=== PATIENT | female | born 1985 | race Caucasian/White ===

== ENCOUNTER 2016-09-20 20:25 | Emergency (ER) | payer SELFPAY ==
[~2016-09-20] VITALS: Ht 167.6 cm; Wt 64.0 kg
[2016-09-20 20:27] VITALS: Ht 167.6 cm; Wt 64.0 kg
[2016-09-20] MEDS ORDERED: ONDANSETRON 4 MG INJ IV STA (21:29)
[2016-09-20] MEDS ORDERED: SOD CHLORIDE 0.9% 1,000 ML IV STA (21:29)
[2016-09-20] MEDS ORDERED: morphine 2 MG INJ IV STA (21:29)
--- NOTE | 2016-09-20 21:33 | ERA ---
ER Documentation Chief Complaint Date/Time DATE: 09/20/16 TIME: 21:29 Chief Complaint RLQ abd pain x 1 day HPI This is a 31-year-old female presented with a chief complaint of right lower quadrant abdominal pain. Patient's pain is described as 8 out of 10 and tight/ throbbing without radiation. Patient's pain started when she was at rest. Has not taken any medications to relieve the symptoms and describes no aggravating/ alleviating factors. Patient has not had pain like this before. No surgeries or past medical history given. Patient is allergic to hydrocortisone. Patient denies fever, anorexia, weight loss, migrating pain, constipation, postprandial abdominal pain, new or recently changed medications, genital pain or ingestion of new or undercooked food. ROS All systems reviewed and are negative except as per history of present illness. Allergies Allergies: Coded Allergies: No Known Allergy (Unverified , 09/20/16) PMhx/Soc Medical and Surgical Hx: pt denies Medical Hx, pt denies Surgical Hx Hx Alcohol Use: Yes (social) Hx Substance Use: No Hx Tobacco Use: Yes Smoking Status: Light tobacco smoker Physical Exam Vitals Vital Signs Date Time Temp Pulse Resp B/P Pulse Ox O2 Delivery O2 Flow Rate FiO2 09/20/16 20:27 98.0 66 20 125/81 100 Physical Exam Const: 31-year-old female who is well-developed and in mild distress who is curled up on initial presentation Head: Atraumatic Eyes: Normal Conjunctiva ENT: Normal External Ears, Nose and Mouth. Neck: Full range of motion..~ No meningismus. Resp: Clear to auscultation bilaterally Cardio: Regular rate and rhythm, no murmurs Abd: Soft nondistended with normal bowel sounds. Mild right lower quadrant tenderness with no guarding. Negative Rovsing's, obturator's and psoas signs. No suprapubic tenderness. Skin: No petechiae or rashes Back: No midline or flank tenderness. No CVA tenderness. Ext: No cyanosis, or edema Neur: Awake and alert Psych: Normal Mood and Affect Result Diagram: 09/20/16213909/20/162139 Results 24 hrs Laboratory Tests Test 09/20/16 21:12 09/20/16 21:40 Urine Color YELLOW Urine Clarity CLOUDY Urine pH 7.0 Urine Specific [place] 1.029 Urine Ketones NEGATIVEmg/dL Urine Nitrite NEGATIVEmg/dL Urine Bilirubin NEGATIVEmg/dL Urine Urobilinogen NEGATIVEmg/dL Urine Leukocyte Esterase NEGATIVELeu/ul Urine Microscopic RBC 1/HPF Urine Microscopic WBC 0/HPF Urine Squamous Epithelial Cells FEW/HPF Urine Amorphous Crystals FEW/HPF Urine Hemoglobin NEGATIVEmg/dL Urine Glucose NEGATIVEmg/dL Urine Total Protein NEGATIVEmg/dl White Blood Count 8.510^3/ul Red Blood Count 4.1910^6/ul Hemoglobin 13.0g/dl Hematocrit 38.8% Mean Corpuscular Volume 92.6fl Mean Corpuscular Hemoglobin 31.0pg Mean Corpuscular Hemoglobin Concent 33.5g/dl Red Cell Distribution Width 12.2% Platelet Count 37133^3/UL Mean Platelet Volume 10.1fl Neutrophils % 73.2% Lymphocytes % 18.6% Monocytes % 6.7% Eosinophils % 0.7% Basophils % 0.4% Nucleated Red Blood Cells % 0.0/100WBC Neutrophils # 6.210^3/ul Lymphocytes # 1.610^3/ul Monocytes # 0.610^3/ul Eosinophils # 0.110^3/ul Basophils # 0.010^3/ul Nucleated Red Blood Cells # 0.010^3/ul Sodium Level 138mmol/L Potassium Level 3.7mmol/L Chloride Level 105mmol/L Carbon Dioxide Level 24mmol/L Anion Gap 13 Blood Urea Nitrogen 26mg/dl Creatinine 0.74mg/dl Glucose Level 98mg/dl Calcium Level 9.1mg/dl Total Bilirubin 0.1mg/dl Direct Bilirubin 0.00mg/dl Indirect Bilirubin 0.1mg/dl Aspartate Amino Transf (AST/SGOT) 28IU/L Alanine Aminotransferase (ALT/SGPT) 31IU/L Alkaline Phosphatase 43IU/L Total Protein 7.2g/dl Albumin 4.5g/dl Globulin 2.70g/dl Albumin/Globulin Ratio 1.66 Lipase 58U/L Current Medications Medications (Trade) Dose Ordered Sig/Adonis Route PRN Reason Start Time Stop Time Status Last Admin Dose Admin Sodium Chloride (NS) 1,000 ml @ 1,000 mls/hr Q1H STAT IV 09/20/16 21:29 09/20/16 22:28 DC 09/20/16 21:44 Morphine Sulfate (morphine) 2 mg ONCE STAT IV 09/20/16 21:29 09/20/16 21:30 DC 09/20/16 21:43 Ondansetron HCl (Zofran Inj) 4 mg ONCE STAT IV 09/20/16 21:29 09/20/16 21:30 DC 09/20/16 21:43 Procedures/MDM This is a 31-year-old female presenting with what lower quadrant tenderness as described in the history and physical examination. Patient was given 2 mg of morphine IV and 4 mg of Zofran IV. The workup included CBC, CMP, lipase, urinalysis, urine . Urine was negative. Urinalysis showed few amorphous crystals. The CBC and CMP were unremarkable without leukocytosis. The current most likely diagnosis is primary dysmenorrhea versus possible nephrolithiasis. I have very little suspicion for complete obstruction or hydronephrosis. At this time the patient will be discharged with Flomax for possible stone and instructed on palliative care. At this time I do not suspect ovarian torsion, tubo-ovarian abscess, mechanical obstruction, ectopic , hernia, appendicitis, intestinal ischemia, PID, AAA, diverticulitis or cystitis. On repeat exam, the abdomen has improved. The patient is well appearing, and tolerates PO. I have spoke with the patient regarding their condition and future management. They have verbally responded that they understand their status and treatment plan. The patients vitals are stable, and their current condition is appropriate for discharge. Patient has been told to return to the emergency department in 8 hours for reevaluation. I spoke with my attending Dr. Espino who has agreed with the assessment and plan. Patient has verbally responded that she understands. The patient will be given discharge instructions with return precautions. Departure Diagnosis: Primary Impression: Nephrolithiasis Additional Impression: Abdominal cramps Condition: Stable Additional Instructions: Follow-up in 8 hours for reevaluation. Return the the emergency department immediately if symptoms worsen or change. If you have any questions regarding medications, ask your pharmacist or us before you leave. If any adverse reactions occur while taking your medications, discontinue the treatment and return to the emergency department immediately. Take your medications as directed, and complete the entire course of treatment. NANI MOSQUERA PA-C Sep 20, 2016 21:33
[2016-09-20 21:56] LABS: ADD SCAN DIFF NO
[2016-09-20 21:58] LABS: BASOPHILS % 0.4 % (0.0-2.0); EOSINOPHILS # 0.1 10^3/ul (0.0-0.5); EOSINOPHILS % 0.7 % (0.0-7.0); HEMATOCRIT 38.8 % (37.0-47.0); LYMPHOCYTES # 1.6 10^3/ul (0.8-2.9); LYMPHOCYTES % 18.6 % (15.0-51.0); MEAN CORPUSCULAR HGB CONC 33.5 g/dl (32.0-37.0); MEAN CORPUSCULAR VOLUME 92.6 fl (82.0-101.0); MEAN PLATELET VOLUME 10.1 fl (7.4-10.4); MONOCYTE # 0.6 10^3/ul (0.3-0.9); MONOCYTES % 6.7 % (0.0-11.0); NEUTROPHIL # 6.2 10^3/ul (1.6-7.5); NEUTROPHILS % 73.2 % (39.0-77.0); PLATELET COUNT 201 10^3/UL (140-415); RED BLOOD COUNT 4.19 10^6/ul (4.20-5.40); RED CELL DISTRIBUTION WIDTH 12.2 % (11.5-14.5); WHITE BLOOD COUNT 8.5 10^3/ul (4.8-10.8)
[2016-09-20 22:18] LABS: ADD UMIC YES; UR AMORPHOUS CRYSTAL FEW /HPF (NONE SEEN); UR ASCORBIC ACID NEGATIVE (NEGATIVE); UR BILIRUBIN (Dip) NEGATIVE (NEGATIVE); UR BLOOD (Dip) NEGATIVE (NEGATIVE); UR CLARITY CLOUDY (CLEAR); UR COLOR YELLOW (YELLOW); UR GLUCOSE (Dip) NEGATIVE (NEGATIVE); UR KETONES (Dip) NEGATIVE (NEGATIVE); UR LEUKOCYTE ESTERASE (Dip) NEGATIVE Leu/ul (NEGATIVE); UR NITRITE (Dip) NEGATIVE (NEGATIVE); UR RBC 1 /HPF (0-5); UR SPECIFIC GRAVITY (Dip) 1.029 (1.003-1.030); UR SQUAMOUS EPITHELIAL CELL FEW /HPF (FEW); UR TOTAL PROTEIN (Dip) NEGATIVE (NEGATIVE); UR UROBILINOGEN (Dip) NEGATIVE (NEGATIVE)
[2016-09-20 22:18] LABS: ALBUMIN 4.5 g/dl (3.3-4.9); ALBUMIN/GLOBULIN RATIO 1.66; BILIRUBIN,INDIRECT 0.1 mg/dl (0-1.1); BILIRUBIN,TOTAL 0.1 mg/dl (0.2-1.3); CALCIUM 9.1 mg/dl (8.4-10.2); CREATININE 0.74 mg/dl (0.44-1.00); POTASSIUM 3.7 mmol/L (3.5-5.1); TOTAL PROTEIN 7.2 g/dl (6.1-8.1)
[2016-09-20] MEDS ORDERED: TAMS-14 PO (22:55)
[2016-09-20] MEDS ORDERED: IBUP-1542 PO (22:55)
[2016-09-20 23:06] VITALS: BP 130/72; PULSE 55; RESP 16
== END 2016-09-20 23:09 | disposition home or self-care (01) ==
LOC: FTE 20:25
DX: N20.0 Calculus of kidney (principal); F17.210 Nicotine dependence, cigarettes, uncomplicated
CPT/HCPCS: 36415; 80053; 81001; 83690; 85025; 96374; 96375; 99284; J2270; J2405; J7030